=== PATIENT | female | born 1990 | race Caucasian/White ===

== ENCOUNTER 2024-03-15 17:04 | Day surgery (SDC) | payer OTHER ==
[2024-03-15 17:29] VITALS: BMI 36.9
[2024-03-15 18:38] LABS: Creatinine, Urine 160.76 mg/dL (47-110)
[2024-03-15] MEDS ORDERED: hydrALAZINE 20 MG/ML VIAL SLOW IVP PRN (18:48)
[2024-03-15 20:35] LABS: #Basophils 0.03 10x3/uL (0.0-0.2); #Eosinophils 0.07 10x3/uL (0.0-0.5); #Monocytes 0.57 10x3/uL (0.0-1.1); #Neutrophils 8.37 10x3/uL (1.5-8.4); %Basophils 0.3 % (0.0-2.0); %Eosinophils 0.7 % (0.0-6.0); %Lymphocytes 15.2 % (18.0-47.0); %Monocytes 5.3 % (0.0-10.0); %Neutrophils 77.9 % (40.0-75.0); Hematocrit 31.3 % (34.9-44.5); Hemoglobin 10.6 g/dL (12.0-15.5); Mean Corpuscular HGB CONC 33.9 g/dL (32.0-36.0); Mean Corpuscular Hemoglobin 28.2 pg (27.0-33.0); Mean Corpuscular Volume 83.2 fL (81.6-98.3); Mean Platelet Volume 9.3 fL (7.4-10.4); Platelet Count 317 10x3/uL (150-450); RBC Distribution Width 13.4 % (11.5-14.5); Red Blood Cell (RBC) Count 3.76 10x6/uL (3.90-5.03); White Blood Cell (WBC) Count 10.7 10x3/uL (3.5-10.5)
[2024-03-15 20:55] LABS: ALT (SGPT) 15 U/L (8-55); AST (SGOT) 15 U/L (5-34); Albumin 2.5 g/dL (3.5-5.0); Alkaline Phosphatase 129 U/L (40-110); Anion Gap 14 mmol/L (10-20); BUN (Urea Nitrogen) 6 mg/dL (7.0-18.7); Bilirubin, Total 0.2 mg/dL (0.2-1.2); Calc. Creatinine Clearance 190 mL/min (70-130); Calcium 9.2 mg/dL (7.8-10.44); Carbon Dioxide 18 mmol/L (22-29); Chloride 108 mmol/L (98-107); Estimated GFR 122; Globulin 4.1 g/dL (2.4-3.5); Glucose 81 mg/dL (70-105); Potassium 3.6 mmol/L (3.5-5.1); Protein, Total 6.6 g/dL (6.0-8.3); Sodium 136 mmol/L (136-145)
== END 2024-03-15 21:35 | disposition home or self-care (01) ==
LOC: CSHLD/OP 17:04
PROVIDERS: ATTEND Obstetrics & Gynecology
DX: O10.913 Unspecified pre-existing hypertension complicating pregnancy, third trimester (principal); O99.891 Other specified diseases and conditions complicating pregnancy; R00.0 Tachycardia, unspecified; O09.513 Supervision of elderly primigravida, third trimester; Z79.899 Other long term (current) drug therapy; Z98.890 Other specified postprocedural states; Z3A.34 34 weeks gestation of pregnancy
CPT/HCPCS: 82570; 84156; 99284

== ENCOUNTER 2024-04-14 19:32 | Inpatient (IN) | payer OTHER ==
[2024-04-14] MEDS ORDERED: HYDROcodone/Acetaminophen 5/325 mg Tablet PO PRN ×2 (19:53)
[2024-04-14] MEDS ORDERED: Ondansetron PF 4 MG/2 ML Vial IVP PRN (19:53)
[2024-04-14] MEDS ORDERED: Lidocaine 1% (PF) 30 ML VIAL SC PRN (19:53)
[2024-04-14] MEDS ORDERED: Lactated Ringer's 1,000 ML IV SCH (19:53)
[2024-04-14] MEDS ORDERED: Oxytocin 30 units/NS 500 ML 500 ML IV SCH ×2 (19:53)
[2024-04-14] MEDS ORDERED: hydrALAZINE 20 MG/ML VIAL SLOW IVP PRN (19:53)
[2024-04-14] MEDS ORDERED: fentaNYL 50 mcg/mL 1 mL Vial SLOW IVP PRN (19:53)
[2024-04-14] MEDS ORDERED: Misoprostol 100 MCG TAB VAG SCH ×2 (19:53)
[2024-04-14] MEDS ORDERED: Promethazine HCl 25 MG/ML VIAL IM PRN (19:53)
[2024-04-14 20:00] VITALS: BMI 37.3
[2024-04-14 20:54] LABS: Hematocrit 32.9 % (34.9-44.5); Mean Corpuscular HGB CONC 33.4 g/dL (32.0-36.0); Mean Corpuscular Hemoglobin 28.2 pg (27.0-33.0); Mean Corpuscular Volume 84.4 fL (81.6-98.3); Mean Platelet Volume 9.4 fL (7.4-10.4); Platelet Count 256 10x3/uL (150-450); RBC Distribution Width 16.4 % (11.5-14.5); White Blood Cell (WBC) Count 8.8 10x3/uL (3.5-10.5)
[2024-04-14 21:53] LABS: HBsAg Index 0.24 S/CO (0-0.99); Hep B Surf Ag - L&D Non-Reactive S/CO (NonReactive)
[2024-04-14 22:05] LABS: Syphilis Antibody Nonreactive (Nonreactive); Syphilis Antibody Index 0.04 S/CO (<1.00 Non-Reactive)
[2024-04-15] MEDS ORDERED: Promethazine HCl 25 MG/ML VIAL IM PRN (04:12)
[2024-04-15] MEDS ORDERED: Naloxone HCl 0.4 mg/ml Vial IVP PRN ×2 (04:12)
[2024-04-15] MEDS ORDERED: Acetaminophen 325 MG TAB PO PRN (04:12)
[2024-04-15] MEDS ORDERED: diphenhydrAMINE 50 MG/ML VIAL IVP PRN (04:12)
[2024-04-15] MEDS ORDERED: ePHEDrine Sulfate 50 MG/10 ML VIAL SLOW IVP PRN (04:12)
[2024-04-15] MEDS ORDERED: Ondansetron PF 4 MG/2 ML Vial IVP PRN ×2 (04:12→21:19)
[2024-04-15] MEDS ORDERED: Lactated Ringer's 500 ML IV PRN (04:12)
[2024-04-15] MEDS ORDERED: Moisturizing Cream (Eucerin) 113 GM JAR TOP PRN (04:12)
[2024-04-15] MEDS ORDERED: Communication Order-Pharmacy FS SCH (04:15)
[2024-04-15] MEDS: Oxytocin 30 units/NS 500 ML 500 ML IV SCH (07:30)
[2024-04-15] MEDS: fentaNYL 2 mcg/Ropivacaine 0.2% Epidural 100 ML CADD EPIDURAL SCH (15:58)
[2024-04-15] MEDS: Ibuprofen 800 MG TAB PO PRN (21:16)
[2024-04-15] MEDS ORDERED: hydrALAZINE 20 MG/ML VIAL SLOW IVP PRN (21:19)
[2024-04-15] MEDS ORDERED: diphenhydrAMINE 25 MG CAP PO PRN (21:19)
[2024-04-15] MEDS ORDERED: Lanolin Ointment 7 GM TUBE TOP PRN (21:19)
[2024-04-15] MEDS ORDERED: Boostrix 0.5 ML (Tdap) VIAL (>/=7 yrs of age) IM ONE (21:19)
[2024-04-15] MEDS ORDERED: Milk Of Magnesia 30 ML UDCUP PO PRN (21:19)
[2024-04-15] MEDS ORDERED: HYDROcodone/Acetaminophen 5/325 mg Tablet PO PRN ×2 (21:19)
[2024-04-15] MEDS ORDERED: Preparation H Ointment 28 GM TUBE PR PRN (21:19)
[2024-04-15] MEDS ORDERED: Oxytocin 30 units/NS 500 ML 500 ML IV SCH (21:19)
[2024-04-15] MEDS ORDERED: Bisacodyl 10 MG SUPP PR PRN (21:19)
[2024-04-15] MEDS: Docusate 100 MG CAP PO SCH (23:55)
[2024-04-16] MEDS: Benzocaine-Menthol 82.5 ML CAN TOP PRN (00:15)
[2024-04-16] MEDS: Dexmedetomidine 200 MCG/2 ML VIAL ONE (04:33)
[2024-04-16] MEDS: Sodium Chloride 0.9% 20 ML ONE (04:33)
[2024-04-16] MEDS: Ibuprofen 800 MG TAB PO SCH (04:37)
[2024-04-16] MEDS: Labetalol HCl 100 MG TAB PO SCH (09:26)
[2024-04-16] MEDS: Prenatal Vitamin 1 TAB PO SCH (09:26)
[2024-04-16] MEDS: Ferrous Sulfate 325 MG TAB PO SCH (17:41)
[2024-04-17] MEDS: fentaNYL/Ropivacaine Epidural 100 ML ONE (03:49)
[2024-04-17 07:39] VITALS: BP 128/84; TEMP 98.7
== END 2024-04-17 12:15 | disposition home or self-care (01) | DRG 807 ==
LOC: CSHLD 19:32 → CSHPP 04-15 21:45
PROVIDERS: ADMIT Obstetrics & Gynecology; ATTEND Obstetrics & Gynecology
PROC: 10E0XZZ Delivery of Products of Conception, External Approach (ICD-10-PCS; principal; 2024-04-15)
PROC: 0KQM0ZZ Repair Perineum Muscle, Open Approach (ICD-10-PCS; 2024-04-15)
DX: O10.92 Unspecified pre-existing hypertension complicating childbirth (principal); Z37.0 Single live birth; Z3A.39 39 weeks gestation of pregnancy; Z88.1 Allergy status to other antibiotic agents; Z79.899 Other long term (current) drug therapy; O70.1 Second degree perineal laceration during delivery
CPT/HCPCS: 36415; 51702; 85027; 86780; 86850; 86900; 86901; 87340; J2590